=== PATIENT | male | born 1980 | race Caucasian/White ===

== ENCOUNTER → 2019-04-27 12:51 | Outpatient (CLI) | payer OTHER, SELFPAY ==
--- NOTE | 2019-04-27 12:54 | RAD_ITS ---
STUDY: X-RAY - RIGHT HAND, ATTENTION INDEX FINGER REASON FOR EXAM: Male, 39 years old. Crush injury to the distal interphalangeal joint. TECHNIQUE: 3 view(s) of the finger were obtained. COMPARISON: None. FINDINGS: Normal metacarpal head. Normal metacarpophalangeal joint. Normal proximal phalanx. Normal middle phalanx. Normal distal phalanx. Normal proximal interphalangeal joint. Normal distal interphalangeal joint. Soft tissue swelling. RAD/Finger(s) Min 2 Views IMPRESSION: Soft tissue swelling. Electronically Signed: Hola Aguilar, at 13:23 EST , Service support ,
== END ==
PROVIDERS: Family Provider Family Medicine; PCP Family Medicine; Referring Provider Physician Assistant; Visit Provider Physician Assistant
DX: S67.192A Crushing injury of right middle finger, initial encounter (principal)
CPT/HCPCS: 73140